=== PATIENT | female | born 1995 | race Caucasian/White ===

== ENCOUNTER 2018-02-02 15:42 | Inpatient (IN) | payer MEDICAID, OTHER ==
[~2018-02-02] VITALS: Ht 165.1 cm; Wt 82.4 kg
[2018-02-02] MEDS ORDERED: ANTIDEPRESSANT PO (16:32)
[2018-02-02 17:25] LABS: BASOPHILS % (AUTO) 0.5 % (0.0-2.0); HEMOGLOBIN 13.3 g/dL (12.0-16.0); LYMPHOCYTES # (AUTO) 1.9 K/uL (1.0-4.8); LYMPHOCYTES % (AUTO) 19.7 % (22.0-44.0); MEAN CORPUSCULAR HEMOGLOBIN 29.6 pg (26.0-34.0); MEAN CORPUSCULAR VOLUME 87 fL (80-100); MONOCYTES # (AUTO) 0.5 K/uL (0.1-1.0); MONOCYTES % (AUTO) 5.7 % (2.0-9.0); NEUTROPHILS # (AUTO) 6.8 K/uL (1.8-7.7); NEUTROPHILS % (AUTO) 72.1 % (40.0-70.0); PLATELET COUNT (AUTO) 312 K/uL (150-450); RED BLOOD CELL COUNT(AUTO) 4.48 MIL/uL (4.00-5.20); RED CELL DISTRIBUTION WIDTH 12.8 % (11.5-14.5)
[2018-02-02] MEDS ORDERED: HALOPERIDOL 5 MG TABLET PO PRN (17:30)
[2018-02-02] MEDS ORDERED: LORazepam 2 MG TABLET PO PRN (17:30)
[2018-02-02] MEDS ORDERED: ZOLPIDEM TARTRATE 10 MG TABLET PO PRN (17:30)
[2018-02-02 17:42] LABS: APPEARANCE,URINE CLOUDY (CLEAR); BILIRUBIN,URINE NEGATIVE (NEGATIVE); GLUCOSE, URINE (UA) NEGATIVE (NEGATIVE); KETONES,URINE NEGATIVE (NEGATIVE); LEUKOCYTE ESTERASE ,URINE MODERATE (NEGATIVE); NITRATE,URINE NEGATIVE (NEGATIVE); OCCULT BLOOD,URINE LARGE (NEGATIVE); PROTEIN,URINE TRACE (NEGATIVE); UROBILINOGEN,URINE 0.2 mg/dL (<=1.0)
[2018-02-02 17:43] LABS: AMPHET/METH SCREEN,URINE NEGATIVE (NEGATIVE); BARBITURATE SCREEN, URINE NEGATIVE (NEGATIVE); BENZODIAZEPINES SCREEN,URINE NEGATIVE (NEGATIVE); CANNABINOID SCREEN,URINE NEGATIVE (NEGATIVE); COCAINE SCREEN,URINE NEGATIVE (NEGATIVE); METHADONE SCREEN, URINE NEGATIVE (NEGATIVE); OPIATE SCREEN,URINE NEGATIVE (NEGATIVE); PHENCYCLIDINE SCREEN,URINE NEGATIVE (NEGATIVE)
[2018-02-02 17:44] LABS: ANION GAP 11 mmol/L (8-16); CALCIUM, TOTAL 8.6 mg/dL (8.8-10.5); CARBON DIOXIDE 26 mmol/L (22-29); CHLORIDE 105 mmol/L (98-107); CREATININE 0.49 mg/dL (0.60-1.30); GLOMERULAR FILTR. RATE CALC > 60 mL/min (>60); GLUCOSE,RANDOM 98 mg/dL (70-110); POTASSIUM 3.6 mmol/L (3.5-5.1); SODIUM SERUM 142 mmol/L (136-145); UREA NITROGEN, BLOOD 9 mg/dL (7-18)
[2018-02-02 18:01] LABS: ALANINE AMINOTRANSFERASE 28 U/L (12-78); ALBUMIN 3.7 g/dL (3.4-5.0); ALKALINE PHOSPHATASE 66 U/L (46-116); ASPARTATE AMINOTRANSFERASE 19 U/L (15-37); BILIRUBIN,TOTAL 0.4 mg/dL (0.1-1.0); HCG,QUANTITATIVE < 1 mIU/mL (0-6); THYROID STIMULATING HORMONE 0.34 uIU/mL (0.36-3.74); TOTAL PROTEIN, SERUM 7.5 g/dL (6.4-8.2)
[2018-02-02 19:16] VITALS: BP 124/75
[2018-02-02 19:26] LABS: BACTERIA,URINE Few /HPF (None Seen); SQUAMOUS EPITHELIAL CELL,UR Moderate /LPF (None Seen); WBC,URINE 26-50 /HPF (0-5)
[2018-02-02 19:27] LABS: MUCUS,URINE Few LPF (None Seen)
[2018-02-02] MEDS ORDERED: ACETAMINOPHEN 325 MG TABLET PO PRN (21:00)
[2018-02-02] MEDS ORDERED: MIRTAZAPINE 15 MG TABLET PO SCH (21:00)
[2018-02-03 06:10] VITALS: BP 103/63
[2018-02-03 08:52] VITALS: BP 121/87
[2018-02-03 09:10] VITALS: BP 121/87
[2018-02-03] MEDS: CIPROFLOXACIN HCL 500 MG TABLET PO SCH ×2 (09:13→21:05)
[2018-02-03] MEDS: IBUPROFEN 400 MG TABLET PO PRN (09:13)
[2018-02-03] MEDS ORDERED: ALBUTEROL SULFATE HFA 90 MCG/PUFF 8 GM INHALER IH PRN (16:15)
[2018-02-03 16:27] VITALS: BP 109/65
[2018-02-03] MEDS: MIRTAZAPINE 30 MG TABLET PO SCH (21:05)
[2018-02-04] MEDS: CIPROFLOXACIN HCL 500 MG TABLET PO SCH ×2 (09:13→16:08)
[2018-02-04 09:15] VITALS: BP 115/70
[2018-02-04] MEDS: IBUPROFEN 400 MG TABLET PO PRN (09:15)
[2018-02-04 10:29] VITALS: BP 115/70
[2018-02-04 17:00] VITALS: BP 112/75
[2018-02-04] MEDS ORDERED: FLUCONAZOLE 150 MG TABLET PO ONE (19:00)
[2018-02-04] MEDS: MIRTAZAPINE 30 MG TABLET PO SCH (20:30)
[2018-02-05 08:30] VITALS: BP 101/50
[2018-02-05] MEDS: CIPROFLOXACIN HCL 500 MG TABLET PO SCH (09:07)
[2018-02-05] MEDS ORDERED: MIRT30 PO (10:22)
[2018-02-05] MEDS ORDERED: CIPR-278 PO (10:22)
== END 2018-02-05 13:25 | disposition home or self-care (01) | DRG 751 ==
LOC: EMS 15:49 → 3EI 17:47
PROVIDERS: ADMIT Psychiatry & Neurology Psychiatry; ATTEND Psychiatry & Neurology Psychiatry
DX: F33.2 Major depressive disorder, recurrent severe without psychotic features (principal); R45.851 Suicidal ideations; Z91.19 Patient's noncompliance with other medical treatment and regimen; N39.0 Urinary tract infection, site not specified; J45.909 Unspecified asthma, uncomplicated; Z98.891 History of uterine scar from previous surgery
CPT/HCPCS: 84443; 87086; G0480